=== PATIENT | male | born 1960 | race African-American/Black ===

== ENCOUNTER 2023-10-24 13:31 | Inpatient (IN) | payer OTHER ==
[2023-10-24 13:50] VITALS: BMI 24.9
[2023-10-24] MEDS ORDERED: IBUPROFEN 400 MG TABLET (FP) PO PRN (14:23)
[2023-10-24] MEDS ORDERED: BENZONATATE 200 MG CAPSULE PO PRN (14:23)
[2023-10-24] MEDS ORDERED: LOPERAMIDE HCL 2 MG CAPSULE PO PRN (14:23)
[2023-10-24] MEDS ORDERED: NICOTINE POLACRILEX 2 MG GUM BUC PRN (14:23)
[2023-10-24] MEDS ORDERED: NALOXONE HCL 0.4 MG/ML VIAL IM PRN (14:23)
[2023-10-24] MEDS ORDERED: ONDANSETRON *ODT* 4 MG TABLET SL PRN (14:23)
[2023-10-24] MEDS ORDERED: BENZOCAINE/MENTHOL (CHLORASEPTIC ) LOZENGE MM PRN (14:23)
[2023-10-24] MEDS ORDERED: ACETAMINOPHEN 325 MG TABLET (FP) PO PRN (14:23)
[2023-10-24] MEDS ORDERED: POLYETHYLENE GLYCOL (HEALTHYLAX) 3350 17 GM PACKET PO PRN (14:23)
[2023-10-24] MEDS ORDERED: BISMUTH SUBSALICYLATE 262 MG/15 ML BTL PO PRN (14:23)
[2023-10-24] MEDS ORDERED: guaiFENesin 600 MG TABLET.ER (FP) PO PRN (14:23)
[2023-10-24] MEDS ORDERED: NALOXONE HCL (KLOXXADO) 8 MG SPRAY NS PRN (14:23)
[2023-10-24] MEDS ORDERED: MAGNESIUM HYDROX 2400MG/30ML ORAL SUSPENSION 30 ML CUP PO PRN (14:23)
[2023-10-24] MEDS ORDERED: methaDONE HCL 10 MG TABLET (FOR DETOX USE ONLY) ONE (14:36)
[2023-10-24] MEDS ORDERED: hydrOXYzine PAMOATE 25 MG CAPSULE (FP) PO ONE (14:36)
[2023-10-24] MEDS: hydrOXYzine PAMOATE 25 MG CAPSULE (FP) PO PRN (14:51)
[2023-10-24] MEDS: methaDONE HCL 10 MG TABLET PO ONE (14:51)
[2023-10-24] MEDS: PRENATAL VITAMINS W/ FOLIC ACID TABLET (FP) PO SCH (14:51)
[2023-10-24] MEDS ORDERED: METHOCARBAMOL 500 MG TABLET ONE (15:02)
[2023-10-24] MEDS: METHOCARBAMOL 500 MG TABLET PO PRN (15:27)
[2023-10-24] MEDS ORDERED: methaDONE HCL 10 MG TABLET PO PRN (16:23)
[2023-10-24] MEDS: cloNIDine HCL 0.1 MG TABLET PO SCH (17:28)
[2023-10-24] MEDS: MELATONIN 5 MG TABLETS PO SCH (22:11)
[2023-10-24] MEDS: THIAMINE 100 MG TABLET PO SCH (22:14)
[2023-10-24] MEDS: MAG HYDROX/AL HYDROX/SIMETH 30 ML UNIT-DOSE CUP PO PRN (23:40)
[2023-10-25] MEDS: DICYCLOMINE HCL 10 MG CAPSULE PO PRN (00:40)
[2023-10-25] MEDS: methaDONE 40 MG, methaDONE 10 MG PO ONE (09:08)
[2023-10-25 11:46] LABS: CHLORIDE 108 mmol/L (98-107); POTASSIUM 3.8 mmol/L (3.5-5.1); SODIUM 143 mmol/L (136-145)
[2023-10-25 11:49] LABS: ALBUMIN 2.9 g/dl (3.4-5.0); ANION GAP 5 mmol/L (4-13); BLOOD UREA NITROGEN 15.3 mg/dL (7-18); CALCIUM 8.5 mg/dL (8.5-10.1); CO2 30 mmol/L (21-32); GLUCOSE,RANDOM 120 mg/dL (74-106)
[2023-10-25 11:52] LABS: CREATININE 0.8 mg/dL (0.55-1.3); SGOT/AST 22 U/L (15-37); SGPT/ALT 29 U/L (13-61)
[2023-10-25 11:53] LABS: BILIRUBIN,TOTAL 0.7 mg/dL (0.2-1)
[2023-10-25 11:54] LABS: TOT PROT 6.1 g/dl (6.4-8.2)
[2023-10-25 11:55] LABS: ALK PHOS 63 U/L (45-117)
[2023-10-25 12:07] LABS: HEMATOCRIT 34.1 % (35.4-49); HEMOGLOBIN 11.1 GM/dL (11.7-16.9); MCH 27.9 pg (25.7-33.7); MCHC 32.6 g/dl (32.0-35.9); MEAN CELL VOLUME 85.6 fl (80-96); MEAN PLT VOLUME 10.3 fl (7.5-11.1); PLATELET COUNT 168 10^3/uL (134-434); RBC 3.98 M/mm3 (4.00-5.60); RDW 16.7 % (11.9-15.9); WHITE BLOOD COUNT 4.1 K/mm3 (4.0-10.0)
[2023-10-26] MEDS: methaDONE 40 MG, methaDONE 20 MG PO ONE (09:58)
[2023-10-26] MEDS: cloNIDine HCL 0.1 MG TABLET PO PRN (22:11)
[2023-10-27] MEDS: methaDONE 40 MG, methaDONE 30 MG PO ONE (10:19)
[2023-10-27] MEDS: IBUPROFEN 600 MG TABLET (FP) PO PRN (10:35)
[2023-10-28] MEDS: methaDONE HCL 40 MG DISPERSABLE TABLET PO ONE (09:33)
[2023-10-29] MEDS: methaDONE 80 MG, methaDONE 10 MG PO ONE (09:19)
[2023-10-29 13:49] VITALS: BP 137/90; PULSE 65; RESP 18; TEMP 97.8
== END 2023-10-29 14:40 | disposition other institution (70) | DRG 773 ==
LOC: YASAS 13:31 → Y6N 14:37
PROVIDERS: ADMIT Allergy & Immunology; ATTEND Surgery
PROC: HZ2ZZZZ Detoxification Services for Substance Abuse Treatment (ICD-10-PCS; principal; 2023-10-24)
DX: F11.23 Opioid dependence with withdrawal (principal); F12.20 Cannabis dependence, uncomplicated; F17.210 Nicotine dependence, cigarettes, uncomplicated; M54.59 Other low back pain; G89.29 Other chronic pain; Z86.11 Personal history of tuberculosis; Z59.00 Homelessness unspecified
CPT/HCPCS: 36415; 71046-TC-FY; 80053; 80305; 80307; 85027; 86780; 87811; 93005; 93010

== ENCOUNTER 2023-10-29 11:53 | Inpatient (IN) | payer OTHER ==
[2023-10-29] MEDS ORDERED: NALOXONE HCL (KLOXXADO) 8 MG SPRAY NS PRN (18:35)
[2023-10-29] MEDS ORDERED: BENZONATATE 200 MG CAPSULE PO PRN (18:35)
[2023-10-29] MEDS ORDERED: MAG HYDROX/AL HYDROX/SIMETH 30 ML UNIT-DOSE CUP PO PRN (18:35)
[2023-10-29] MEDS ORDERED: LOPERAMIDE HCL 2 MG CAPSULE PO PRN (18:35)
[2023-10-29] MEDS ORDERED: guaiFENesin 600 MG TABLET.ER (FP) PO PRN (18:35)
[2023-10-29] MEDS ORDERED: POLYETHYLENE GLYCOL (HEALTHYLAX) 3350 17 GM PACKET PO PRN (18:35)
[2023-10-29] MEDS ORDERED: IBUPROFEN 400 MG TABLET (FP) PO PRN (18:35)
[2023-10-29] MEDS ORDERED: BENZOCAINE/MENTHOL (CHLORASEPTIC ) LOZENGE MM PRN (18:35)
[2023-10-29] MEDS ORDERED: NALOXONE HCL 0.4 MG/ML VIAL IM PRN (18:35)
[2023-10-29] MEDS: MELATONIN 5 MG TABLETS PO SCH (22:52)
[2023-10-29] MEDS: THIAMINE 100 MG TABLET PO SCH (22:52)
[2023-10-30] MEDS: methaDONE 80 MG, methaDONE 10 MG PO SCH (05:44)
[2023-10-30] MEDS ORDERED: methaDONE HCL 10 MG TABLET PO SCH (06:00)
[2023-10-30 06:35] LABS: PH,URINE 5.5 (5.0-8.0); URINE APPEARANCE CLEAR; URINE BILIRUBIN NEGATIVE (NEGATIVE); URINE COLOR YELLOW; URINE GLUCOSE (UA) NEGATIVE (NEGATIVE); URINE KETONE NEGATIVE (NEGATIVE); URINE LEUK ESTERASE NEGATIVE (NEGATIVE); URINE NITRITE NEGATIVE (NEGATIVE); URINE PROTEIN NEGATIVE (NEGATIVE); URINE UROBILINOGEN 0.2 mg/dL (0.2-1.0)
[2023-10-30] MEDS: PRENATAL VITAMINS W/ FOLIC ACID TABLET (FP) PO SCH (10:14)
[2023-10-30 10:47] LABS: CHLORIDE 104 mmol/L (98-107); POTASSIUM 4.5 mmol/L (3.5-5.1); SODIUM 139 mmol/L (136-145)
[2023-10-30 10:53] LABS: HEMATOCRIT 34.9 % (35.4-49); HEMOGLOBIN 11.2 GM/dL (11.7-16.9); MCH 27.8 pg (25.7-33.7); MCHC 32.2 g/dl (32.0-35.9); MEAN CELL VOLUME 86.4 fl (80-96); MEAN PLT VOLUME 9.6 fl (7.5-11.1); PLATELET COUNT 196 10^3/uL (134-434); RBC 4.04 M/mm3 (4.00-5.60); RDW 16.9 % (11.9-15.9)
[2023-10-30 10:56] LABS: ALBUMIN 3.2 g/dl (3.4-5.0); CREATININE 0.8 mg/dL (0.55-1.3); GLUCOSE,RANDOM 121 mg/dL (74-106); SGPT/ALT 28 U/L (13-61)
[2023-10-30 10:57] LABS: BILIRUBIN,TOTAL 0.3 mg/dL (0.2-1)
[2023-10-30 10:58] LABS: CALCIUM 8.6 mg/dL (8.5-10.1); TOT PROT 6.7 g/dl (6.4-8.2)
[2023-10-30 10:59] LABS: ALK PHOS 72 U/L (45-117); ANION GAP 3 mmol/L (4-13); CO2 32 mmol/L (21-32); SGOT/AST 20 U/L (15-37)
[2023-10-30 11:21] LABS: SYPHILIS W/ RPR CONF NON-REACTIVE (NONREACTIVE)
[2023-10-30] MEDS: IBUPROFEN 600 MG TABLET (FP) PO PRN (18:31)
[2023-10-30] MEDS: METHOCARBAMOL 500 MG TABLET PO PRN (20:24)
[2023-11-03] MEDS: ACETAMINOPHEN 325 MG TABLET (FP) PO PRN (21:32)
[2023-11-05] MEDS: hydrOXYzine PAMOATE 25 MG CAPSULE (FP) PO PRN (07:13)
[2023-11-06] MEDS: MAGNESIUM HYDROX 2400MG/30ML ORAL SUSPENSION 30 ML CUP PO PRN (19:11)
[2023-11-11] MEDS ORDERED: LISINOPRIL 5 MG TABLET PO SCH (12:45)
[2023-11-11] MEDS: LISINOPRIL 5 MG TABLET PO SCH (14:11)
[2023-11-11] MEDS: HYDROCORTISONE 1% TOPICAL CREAM 30 GM TUBE TP PRN (21:14)
[2023-11-17] MEDS: methaDONE HCL 40 MG DISPERSABLE TABLET PO SCH (06:20)
[2023-11-21] MEDS: BACLOFEN 10 MG TABLET (FP) PO SCH (13:05)
[2023-11-23 06:30] VITALS: BP 144/73; PULSE 62; RESP 20; TEMP 97.9
== END 2023-11-23 06:35 | disposition home or self-care (01) | DRG 772 ==
LOC: YASAS 11:53 → Y3NR 11:55 → Y5N 10-31 15:01 → Y3E 11-04 15:27
PROVIDERS: ADMIT Surgery; ATTEND Psychiatry & Neurology Pain Medicine
PROC: HZ42ZZZ Group Counseling for Substance Abuse Treatment, Cognitive-Behavioral (ICD-10-PCS; principal; 2023-10-29)
DX: F11.20 Opioid dependence, uncomplicated (principal); F14.20 Cocaine dependence, uncomplicated; F17.210 Nicotine dependence, cigarettes, uncomplicated; F19.282 Other psychoactive substance dependence with psychoactive substance-induced sleep disorder; F19.24 Other psychoactive substance dependence with psychoactive substance-induced mood disorder; I10 Essential (primary) hypertension; L30.8 Other specified dermatitis; M54.50 Low back pain, unspecified; G89.29 Other chronic pain; Z86.11 Personal history of tuberculosis; Z59.00 Homelessness unspecified
CPT/HCPCS: 36415; 80053; 80307; 81003; 82962; 85027; 86780; 86803; 87811; J0475